=== PATIENT | female | born 1985 | race Caucasian/White ===

== ENCOUNTER 2024-01-19 03:57 | Emergency (ER) | payer BC, OTHER ==
[2024-01-19 04:09] VITALS: BP 111/71; PULSE 81; RESP 20; TEMP 98.2; BMI 25.6
[2024-01-19] MEDS ORDERED: LIDOCAINE 4% PATCH TP ONE (05:11)
[2024-01-19] MEDS ORDERED: KETOROLAC TROMETHAMINE 30 MG/1 ML VIAL ONE (05:11)
[2024-01-19] MEDS ORDERED: ALBUTEROL SO4 HFA INHALER IH ONE (05:22)
[2024-01-19] MEDS: LIDOCAINE 4% PATCH TP ONE (05:22)
[2024-01-19] MEDS: KETOROLAC TROMETHAMINE 30 MG/1 ML VIAL IM ONE (05:22)
[2024-01-19] MEDS: ALBUTEROL SO4 HFA INHALER IH ONE (05:23)
[2024-01-19] MEDS: LORATADINE 10 MG TABLET PO ONE (06:10)
[2024-01-19] MEDS ORDERED: LIDOCAINE PATCH REMOVAL MC ONE (17:00)
== END 2024-01-19 06:36 | disposition home or self-care (01) ==
LOC: JER 03:57
PROC: 3E0233Z Introduction of Anti-inflammatory into Muscle, Percutaneous Approach (ICD-10-PCS; principal; 2024-01-19)
DX: M25.532 Pain in left wrist (principal); M25.432 Effusion, left wrist; W01.0XXA Fall on same level from slipping, tripping and stumbling without subsequent striking against object, initial encounter; Y92.009 Unspecified place in unspecified non-institutional (private) residence as the place of occurrence of the external cause; Y93.01 Activity, walking, marching and hiking
CPT/HCPCS: 72170-TC-FY; 73070-TC-LT-FY; 73110-TC-LT-FY; 73130-TC-LT-FY; 99284-25